=== PATIENT | female | born 1960 | race Native Hawaiian/Other Pacific Islander ===

== ENCOUNTER 2020-09-26 08:22 | Outpatient (CLI) | payer OTHER | END 2020-09-26 19:31 | disposition home or self-care (01) | LOC: CT 08:22 | PROVIDERS: ATTEND Internal Medicine | DX: R04.2 Hemoptysis (principal); R06.02 Shortness of breath; J43.1 Panlobular emphysema; Z87.01 Personal history of pneumonia (recurrent); Z87.09 Personal history of other diseases of the respiratory system | CPT/HCPCS: 36415; 82565; 84520; Q9963 ==